=== PATIENT | male | born 1955 | race Two or more races ===

== ENCOUNTER → 2017-06-23 08:20 | Outpatient (CLI) | payer OTHER ==
[~2017-06-23] VITALS: Ht 152.4 cm; Wt 113.9 kg
[~2017-06-23 08:20] MED LIST: AMARIL PO; AMARYL 1 MG PO; ANTIVERT25 M1 PO; CATAFLAM50 MG PO; GILTUSS TR TAB1 EACH PO; GLUCOTROL10 MG; GLUMETZA1000 MG; HUMALOG100 U/ML; HYDROCHLOROTHIA25 MG; HYDROCHLOROTHIA25 MG PO; LISINOPRIL5 MG; NEURONTIN300 MG PO; PENTOXIFYLLINE400 MG PO; PRAVACHOL 20 MG PO; PRAVACHOL10 MG; PRAVACHOL10 MG PO; VASOTEC20 M1 PO; VASOTEC20 MG; VASOTEC20 MG PO; VOLTAREM 50 MG PO; ZITHROMAX200 MG PO; ZOCOR40 MG; ZYRTEC10 MG PO
== END | disposition home or self-care (01) ==
LOC: PPHC 08:20
DX: R05 Cough (principal); J02.9 Acute pharyngitis, unspecified

== ENCOUNTER 2017-07-20 07:32 | Outpatient (CLI) | payer OTHER | END 2017-07-20 07:41 | disposition home or self-care (01) | LOC: LAB 07:32 | DX: Z00.00 Encounter for general adult medical examination without abnormal findings (principal) ==

== ENCOUNTER 2018-02-01 08:20 | Outpatient (CLI) | payer OTHER | END 2018-02-01 08:30 | disposition home or self-care (01) | LOC: RAD 08:20 | DX: F17.210 Nicotine dependence, cigarettes, uncomplicated (principal); I10 Essential (primary) hypertension; E11.9 Type 2 diabetes mellitus without complications; E78.2 Mixed hyperlipidemia; Z12.11 Encounter for screening for malignant neoplasm of colon ==

== ENCOUNTER 2018-02-08 07:46 | Outpatient (CLI) | payer OTHER | END 2018-02-08 07:51 | disposition home or self-care (01) | LOC: LAB 07:46 | DX: I10 Essential (primary) hypertension (principal); E11.9 Type 2 diabetes mellitus without complications; E78.2 Mixed hyperlipidemia; Z12.11 Encounter for screening for malignant neoplasm of colon ==

== ENCOUNTER → 2018-06-08 09:43 | Outpatient (CLI) | payer OTHER | END | disposition home or self-care (01) | LOC: LAB 09:43 | DX: J11.1 Influenza due to unidentified influenza virus with other respiratory manifestations (principal) ==

== ENCOUNTER 2018-12-13 07:16 | Emergency (ER) | payer OTHER ==
[~2018-12-13] VITALS: Ht 170.2 cm; Wt 113.4 kg
== END 2018-12-13 12:28 | disposition home or self-care (01) ==
LOC: ER 07:16
DX: B34.9 Viral infection, unspecified (principal)

== ENCOUNTER → 2019-02-28 06:25 | Outpatient (CLI) | payer OTHER | END | disposition home or self-care (01) | LOC: LAB 06:25 | DX: Z12.5 Encounter for screening for malignant neoplasm of prostate (principal); Z12.11 Encounter for screening for malignant neoplasm of colon; E11.65 Type 2 diabetes mellitus with hyperglycemia; E78.2 Mixed hyperlipidemia; I10 Essential (primary) hypertension; Z00.00 Encounter for general adult medical examination without abnormal findings ==

== ENCOUNTER 2019-03-03 07:50 | Outpatient (CLI) | payer OTHER | END 2019-03-03 11:13 | disposition home or self-care (01) | LOC: LAB 07:50 | DX: E78.2 Mixed hyperlipidemia (principal); I10 Essential (primary) hypertension; E11.65 Type 2 diabetes mellitus with hyperglycemia; Z12.11 Encounter for screening for malignant neoplasm of colon; Z12.5 Encounter for screening for malignant neoplasm of prostate; Z00.00 Encounter for general adult medical examination without abnormal findings ==

== ENCOUNTER 2019-04-21 11:34 | Emergency (ER) | payer OTHER ==
[~2019-04-21] VITALS: Ht 165.1 cm; Wt 113.4 kg
[2019-04-21] MEDS ORDERED: VASOTEC5 MG (11:42)
[2019-04-21] MEDS ORDERED: BUTALB-ACETAMI1 EAC2 PO (14:36)
== END 2019-04-21 14:44 | disposition home or self-care (01) ==
LOC: ER 11:34
DX: R51 Headache (principal)

== ENCOUNTER 2019-12-29 08:32 | Outpatient (CLI) | payer OTHER ==
[~2019-12-29 08:32] MED LIST changes: +BUTALB-ACETAMI1 EAC2 PO; +VASOTEC5 MG
== END 2019-12-29 08:40 | disposition home or self-care (01) ==
LOC: LAB 08:32
PROVIDERS: ATTEND General Practice
DX: J11.1 Influenza due to unidentified influenza virus with other respiratory manifestations (principal); Z20.828 Contact with and (suspected) exposure to other viral communicable diseases; R50.9 Fever, unspecified; Z11.59 Encounter for screening for other viral diseases

== ENCOUNTER → 2020-01-26 | Outpatient (CLI) | payer OTHER | END | disposition home or self-care (01) | LOC: LAB 09:29 | PROVIDERS: ATTEND General Practice | DX: U07.1 COVID-19 (principal); R05 Cough; J11.1 Influenza due to unidentified influenza virus with other respiratory manifestations; R50.9 Fever, unspecified; R06.2 Wheezing ==

== ENCOUNTER 2020-04-03 21:31 | Emergency (ER) | payer OTHER ==
[~2020-04-03] VITALS: Ht 152.4 cm; Wt 113.4 kg
[2020-04-04] MEDS ORDERED: CEFUROXIME500 MG PO (06:00)
[2020-04-04] MEDS ORDERED: LEVSIN/SL0.125 MG SL (06:00)
== END 2020-04-04 06:11 | disposition home or self-care (01) ==
LOC: ER 21:31
DX: R10.13 Epigastric pain (principal); Z03.818 Encounter for observation for suspected exposure to other biological agents ruled out

== ENCOUNTER 2020-04-23 07:32 | Outpatient (CLI) | payer OTHER ==
[~2020-04-23 07:32] MED LIST changes: +CEFUROXIME500 MG PO; +LEVSIN/SL0.125 MG SL
== END 2020-04-23 07:43 | disposition home or self-care (01) ==
LOC: NUCLEAR 07:32
PROVIDERS: ATTEND Surgery
DX: K82.8 Other specified diseases of gallbladder (principal)
CPT/HCPCS: 78227; A9537

== ENCOUNTER 2020-05-11 07:16 | Emergency (ER) | payer OTHER ==
[~2020-05-11] VITALS: Ht 170.2 cm; Wt 110.7 kg
[2020-05-11] MEDS ORDERED: GLIMEPIRIDE1 MG (07:36)
[2020-05-11] MEDS ORDERED: PRAVASTATIN SOD20 MG PO (07:38)
== END 2020-05-11 13:08 | disposition home or self-care (01) ==
LOC: ER 07:16 → CPU-OBS 07:22 → ER 07:22
DX: R42 Dizziness and giddiness (principal); R07.89 Other chest pain; Z20.828 Contact with and (suspected) exposure to other viral communicable diseases
CPT/HCPCS: G0378; G0379; 70450; 93005

== ENCOUNTER 2020-05-23 09:23 | Outpatient (CLI) | payer OTHER ==
[~2020-05-23 09:23] MED LIST changes: +GLIMEPIRIDE1 MG; +PRAVASTATIN SOD20 MG PO
== END 2020-05-23 11:00 | disposition home or self-care (01) ==
LOC: OFIC 805 09:23
PROVIDERS: ATTEND Otolaryngology Otology & Neurotology
DX: R42 Dizziness and giddiness (principal); I10 Essential (primary) hypertension

== ENCOUNTER 2020-08-01 13:01 | Outpatient (CLI) | payer OTHER | END 2020-08-01 13:26 | disposition home or self-care (01) | LOC: OFIC 805 13:01 | PROVIDERS: ATTEND Otolaryngology Otology & Neurotology | DX: R42 Dizziness and giddiness (principal) ==

== ENCOUNTER → 2021-05-30 08:00 | Outpatient (CLI) | payer OTHER | END | disposition home or self-care (01) | LOC: PPH VACUNA 08:00 | PROVIDERS: ATTEND Emergency Medicine Pediatric Emergency Medicine | DX: Z23 Encounter for immunization (principal) ==

== ENCOUNTER 2022-02-11 08:50 | Outpatient (CLI) | payer OTHER | END 2022-02-11 08:53 | disposition home or self-care (01) | LOC: NUCLEAR 08:50 | DX: I87.2 Venous insufficiency (chronic) (peripheral) (principal); Z88.2 Allergy status to sulfonamides; Z88.1 Allergy status to other antibiotic agents ==

== ENCOUNTER 2023-05-12 10:50 | Outpatient (CLI) | payer OTHER | END 2023-05-12 10:54 | disposition home or self-care (01) | LOC: RAD 10:50 | PROVIDERS: ATTEND Family Medicine | DX: J44.9 Chronic obstructive pulmonary disease, unspecified (principal); I70.0 Atherosclerosis of aorta; Z88.1 Allergy status to other antibiotic agents; Z88.2 Allergy status to sulfonamides ==

== ENCOUNTER 2023-05-22 09:11 | Outpatient (CLI) | payer OTHER | END 2023-05-22 09:15 | disposition home or self-care (01) | LOC: RAD 09:11 | PROVIDERS: ATTEND Family Medicine | DX: M25.522 Pain in left elbow (principal) ==

== ENCOUNTER 2023-08-25 10:53 | Outpatient (CLI) | payer OTHER | END 2023-08-25 10:59 | disposition home or self-care (01) | LOC: RAD 10:53 | PROVIDERS: ATTEND Family Medicine | DX: M79.671 Pain in right foot (principal); M10.00 Idiopathic gout, unspecified site; Z88.2 Allergy status to sulfonamides; Z88.1 Allergy status to other antibiotic agents ==

== ENCOUNTER 2024-02-10 09:57 | Outpatient (CLI) | payer OTHER | END 2024-02-10 10:14 | disposition home or self-care (01) | LOC: RAD 09:57 | PROVIDERS: ATTEND Family Medicine | DX: M54.50 Low back pain, unspecified (principal); M25.551 Pain in right hip ==

== ENCOUNTER 2024-11-23 10:58 | Outpatient (CLI) | payer OTHER | END 2024-11-23 11:00 | disposition home or self-care (01) | LOC: RAD 10:58 | PROVIDERS: ATTEND Family Medicine | DX: J01.40 Acute pansinusitis, unspecified (principal) ==

== ENCOUNTER 2025-01-12 12:11 | Outpatient (CLI) | payer OTHER | END 2025-01-12 12:12 | disposition home or self-care (01) | LOC: RAD 12:11 | DX: M25.511 Pain in right shoulder (principal) ==

== ENCOUNTER 2025-01-26 08:53 | Outpatient (CLI) | payer OTHER | END 2025-01-26 08:54 | disposition home or self-care (01) | LOC: SONOGRAMA 08:53 | PROVIDERS: ATTEND Internal Medicine Gastroenterology | DX: R10.9 Unspecified abdominal pain (principal) ==

== ENCOUNTER 2025-02-24 07:33 | Outpatient (CLI) | payer OTHER | END 2025-02-24 07:44 | disposition home or self-care (01) | LOC: TOM 07:33 | PROVIDERS: ATTEND Internal Medicine Gastroenterology | DX: R10.9 Unspecified abdominal pain (principal); K57.32 Diverticulitis of large intestine without perforation or abscess without bleeding | CPT/HCPCS: 74177; Q9965 ==

== ENCOUNTER 2025-03-23 19:02 | Emergency (ER) | payer OTHER ==
[~2025-03-23] VITALS: Ht 170.2 cm; Wt 112.0 kg
[2025-03-23] MEDS ORDERED: PROSCAR5 MG PO (20:21)
[2025-03-23 20:22] VITALS: BP 175/91; O2SAT 98
[2025-03-23] MEDS ORDERED: ORPHENADRINE CITRATE 30 MG/ML AMPUL ONE (20:54)
[2025-03-23] MEDS ORDERED: KETOROLAC TROMETHAMINE 60 MG VIAL IM ONE ×2 (20:55→21:00)
[2025-03-23] MEDS ORDERED: DEXAMETHASONE SODIUM PHOSPHATE 4 MG/ML VIAL ONE (20:55)
[2025-03-23] MEDS ORDERED: DEXAMETHASONE SODIUM PHOSPHATE 4 MG/ML VIAL IM ONE (21:00)
[2025-03-23] MEDS ORDERED: ORPHENADRINE CITRATE 30 MG/ML AMPUL IM ONE (21:00)
[2025-03-23] MEDS ORDERED: NEURONTIN300 MG PO (21:51)
[2025-03-25] MEDS ORDERED: ASPERCREME1 EACH TOP (13:22)
[2025-03-25] MEDS ORDERED: NORFLEX100MG PO (13:22)
[2025-03-25] MEDS ORDERED: KETO10TA2 PO (13:22)
[2025-03-25] MEDS ORDERED: MEDROLPACK PO (13:22)
== END 2025-03-24 01:08 ==
LOC: ER 19:03
DX: M54.50 Low back pain, unspecified (principal); Z88.2 Allergy status to sulfonamides; Z88.1 Allergy status to other antibiotic agents; E11.9 Type 2 diabetes mellitus without complications; Z79.84 Long term (current) use of oral hypoglycemic drugs; I10 Essential (primary) hypertension; N40.0 Benign prostatic hyperplasia without lower urinary tract symptoms
CPT/HCPCS: 72100; 99283; J1100; J1885; J2360

== ENCOUNTER 2025-03-25 09:40 | Emergency (ER) | payer OTHER ==
[~2025-03-25] VITALS: Ht 170.2 cm; Wt 111.1 kg
[~2025-03-25 09:40] MED LIST changes: +PROSCAR5 MG PO
[2025-03-25] MEDS ORDERED: ORPHENADRINE CITRATE 30 MG/ML AMPUL IV ONE (10:45)
[2025-03-25] MEDS ORDERED: FAMOTIDINE/PF 20 MG/2 ML VIAL IV ONE (10:45)
[2025-03-25] MEDS ORDERED: 0.9 % SODIUM CHLORIDE 1,000 ML IV SCH (10:45)
[2025-03-25] MEDS ORDERED: DEXAMETHASONE SODIUM PHOSPHATE 4 MG/ML VIAL IV ONE (10:45)
[2025-03-25] MEDS ORDERED: KETOROLAC TROMETHAMINE 30 MG VIAL IU ONE (10:45)
[2025-03-25] MEDS ORDERED: KETOROLAC TROMETHAMINE 30 MG VIAL ONE (11:57)
[2025-03-25] MEDS ORDERED: ORPHENADRINE CITRATE 30 MG/ML AMPUL ONE (11:57)
[2025-03-25] MEDS ORDERED: DEXAMETHASONE SODIUM PHOSPHATE 4 MG/ML VIAL ONE (11:57)
[2025-03-25 12:32] LABS: BASO % 0.5 % (0.1-1.2); EOS # 0.24 (0.04-0.54); EOS % 3.2 % (0.7-7.0); LYMPH # 2.09 (1.18-3.74); LYMPH % 28.2 % (19.3-53.1); MEAN PLATELET VOLUME 10.80 fl (9.4-12.4); MONO # 0.78 (0.24-0.82); MONO % 10.5 % (4.7-12.5); NEUT # 4.25 (1.56-6.13); NEUT % 57.3 % (34.0-71.1); RED CELL DISTRIBUTION WIDTH 11.9 % (11.6-14.4)
[2025-03-25 12:33] LABS: URINE APPEARANCE Clear; URINE BILIRRUBIN Small (NEGATIVE); URINE BLOOD Negative; URINE COLOR Dark Yellow; URINE GLUCOSE Negative (NEGATIVE); URINE KETONE Trace (NEGATIVE); URINE LEUKOCYTE Small; URINE NITRATE Positive; URINE UROBILINOGEN 1.0 E.U./dl
[2025-03-25 12:37] LABS: URINE BACTERIA 392.3 uL (0.0-1933); URINE CAST 5.71 uL (0.0-1.40); URINE EPITHELIAL CELLS 19.3 uL (0.0-38.8); URINE RBC 7.3 uL (0.0-20.8); URINE WBC 75.0 uL (0.0-23.2)
[2025-03-25 12:56] LABS: URINE PROTEIN 100 (NEGATIVE)
[2025-03-25 12:58] LABS: TYPE CELLS SQUAMOUS
[2025-03-25] MEDS ORDERED: FAMOtidine 200mg/20ml VIAL ONE (13:02)
[2025-03-25 13:06] LABS: ALT/SGPT 86.0 U/L (12-78); AST/SGOT 50.0 U/L (15-37); BILIRUBIN TOTAL 0.77 mg/dL (0.3-1.2); BUN CREA RATIO 20.0 (7.0-25.0); CREATININE SERUM 1.33 mg/dL (0.70-1.30); GFR 53.31; GLOBULINA 3.7 G/DL (2.4-3.5); GLUCOSE FASTING 85.0 mg/dL (65-100); OSMOLALITY SERUM 287.0 MOSM/KG (275-295)
[2025-03-25] MEDS ORDERED: MEDROLPACK PO (13:22)
[2025-03-25] MEDS ORDERED: KETO10TA2 PO (13:22)
[2025-03-25] MEDS ORDERED: NORFLEX100MG PO (13:22)
[2025-03-25] MEDS ORDERED: ASPERCREME1 EACH TOP (13:22)
== END 2025-03-25 14:28 | disposition home or self-care (01) ==
LOC: ER 09:40
PROVIDERS: Student in an Organized Health Care Education/Training Program
DX: M62.830 Muscle spasm of back (principal); M54.16 Radiculopathy, lumbar region; N20.0 Calculus of kidney; N28.1 Cyst of kidney, acquired; K57.30 Diverticulosis of large intestine without perforation or abscess without bleeding; E11.9 Type 2 diabetes mellitus without complications; Z79.84 Long term (current) use of oral hypoglycemic drugs; Z88.2 Allergy status to sulfonamides; Z88.8 Allergy status to other drugs, medicaments and biological substances
CPT/HCPCS: 36415; 72131; 96365; 96366; 99283; J1100; J1885; J2360; J3490; J7030